=== PATIENT | male | born 2000 | race African-American/Black ===

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

== ENCOUNTER 2022-12-11 06:52 | Outpatient (RCR) | payer OTHER, SELFPAY | END 2023-03-11 23:59 | disposition home or self-care (01) | LOC: ANHBWCAUD 06:52 | DX: Z46.1 Encounter for fitting and adjustment of hearing aid (principal) | CPT/HCPCS: 99199 ==